=== PATIENT | male | born 1975 | race Caucasian/White ===

== ENCOUNTER 2020-02-18 20:28 | Emergency (ER) | payer SELFPAY | END 2020-02-18 21:35 | disposition left against medical advice (07) | LOC: MW.ED 20:28 | DX: Z53.21 Procedure and treatment not carried out due to patient leaving prior to being seen by health care provider (principal) ==

== ENCOUNTER 2020-07-20 16:01 | Emergency (ER) | payer SELFPAY ==
[2020-07-20] MEDS ORDERED: LORazepam 2 MG/ML SDV IVPUSH ONE (16:18)
[2020-07-20] MEDS ORDERED: Sodium Chloride 0.9% 2.5 ML Syringe FLUSH PRN (16:18)
[2020-07-20] MEDS ORDERED: Sodium Chloride 0.9% 10 ML Syringe FLUSH PRN (16:18)
[2020-07-20] MEDS ORDERED: Haloperidol Lactate 5 MG/ML SDV IM ONE ×2 (16:18→16:51)
[2020-07-20] MEDS ORDERED: Sodium Chloride 0.9% 1,000 ML IV ONE (16:18)
--- NOTE | 2020-07-20 16:25 | EDM.PDOC ---
ED HPI GENERAL MEDICAL PROBLEM - General Chief Complaint: Behavioral/Psych Stated Complaint: MEDICAL CLEARANCE Time Seen by Provider: 07/20/20 16:09 Source of Information: Reports: Patient History Limitations: Reports: No Limitations - History of Present Illness INITIAL COMMENTS - FREE TEXT/NARRATIVE: 44-year-old male past medical history alcohol and substance abuse presents for suicidal ideation. Patient is brought in under 96-hour court hold. Patient states that he became very intoxicated this morning and had thoughts of self- harm. He notes that his took away all of his guns because she is concerned that he would hurt himself. He told her that he bought some rat poison but tells me that this was a lie. He did admit to her that he did not actually take any rat poison. - Related Data Allergies Allergy/AdvReac Type Severity Reaction Status Date / Time No Known Allergies Allergy Verified 07/20/20 16:25 Home Meds: Home Meds . [No Known Home Meds] 02/18/20 [History] Past Medical History - Past Health History Medical/Surgical History: Denies Medical/Surgical History - Infectious Disease History Infectious Disease History: Reports: Novel Coronavirus Social & Family History - Family History Family Medical History: No Pertinent Family History - Caffeine Use Caffeine Use: Reports: Coffee ED ROS GENERAL - Review of Systems Review Of Systems: Comprehensive ROS is negative, except as noted in HPI. ED EXAM, GENERAL - Physical Exam Exam: See Below Exam Limited By: No Limitations General Appearance: Alert, WD/WN, Anxious Eye Exam: Bilateral Eye: EOMI, PERRL Throat/Mouth: Normal Voice, No Airway Compromise Head: Atraumatic, Normocephalic Neck: Normal Inspection, Supple Respiratory/Chest: No Respiratory Distress, Lungs Clear, Normal Breath Sounds, No Accessory Muscle Use Cardiovascular: Normal Peripheral Pulses, Tachycardia GI/Abdominal: Soft, Non-Tender Extremities: Normal Inspection Neurological: Alert, Normal Gait Psychiatric: Other (Cooperative, tearful, depressed mood, flat affect, endorses suicidal ideation, denies homicidal ideation) Skin Exam: Warm, Dry, Intact, Normal Color Course - Vital Signs Last Recorded V/S: Last Vital Signs Temp 98.1 F 07/20/20 16:01 Pulse 102 H 07/20/20 17:30 Resp 20 07/20/20 17:30 BP 147/78 H 07/20/20 17:30 Pulse Ox 94 L 06/10/21 17:30 - Orders/Labs/Meds Orders: Active Orders 24 hr Category Date Time Status EKG Documentation Completion [RC] STAT Care 07/20/20 16:18 Active CORONAVIRUS COVID-19 [facility] [[facility]] Stat Lab 07/20/20 17:09 Received INR,PT,PROTHROMBIN TIME [[facility]] Stat Lab 07/20/20 16:45 Received PTT,PARTIAL THROMBOPLSTIN TIME [COAG] Stat Lab 07/20/20 16:45 Received Labs: Laboratory Tests 07/20/20 07/20/20 07/20/20 Range/Units 16:45 16:45 17:00 WBC 4.63 (4.0-11.0) K/uL RBC 5.80 (4.50-5.90) M/uL Hgb 17.7 H (13.0-17.0) g/dL Hct 50.1 H (38.0-50.0) % MCV 86.4 (80.0-98.0) fL MCH 30.5 (27.0-32.0) pg MCHC 35.3 (31.0-37.0) g/dL RDW Std Deviation 41.0 (28.0-62.0) fl RDW Coeff of Shaista 13 (11.0-15.0) % Plt Count 234 (150-400) K/uL MPV 9.60 (7.40-12.00) fL Neut % (Auto) 52.8 (48.0-80.0) % Lymph % (Auto) 38.2 (16.0-40.0) % [place] % (Auto) 7.1 (0.0-15.0) % Eos % (Auto) 1.3 (0.0-7.0) % Baso % (Auto) 0.6 (0.0-1.5) % Neut # (Auto) 2.4 (1.4-5.7) K/uL Lymph # (Auto) 1.8 (0.6-2.4) K/uL [place] # (Auto) 0.3 (0.0-0.8) K/uL Eos # (Auto) 0.1 (0.0-0.7) K/uL Baso # (Auto) 0.0 (0.0-0.1) K/uL Nucleated RBC % 0.0 /100WBC Nucleated RBCs # 0 K/uL Sodium 145 (136-148) mmol/L Potassium 4.0 (3.5-5.1) mmol/L Chloride 104 (98-107) mmol/L Carbon Dioxide 19.1 L (21.0-32.0) mmol/L BUN 11 (7.0-18.0) mg/dL Creatinine 0.9 (0.8-1.3) mg/dL Est Cr Clr Drug Dosing 113.88 mL/min Estimated GFR (MDRD) > 60.0 ml/min Glucose 91 (74-106) mg/dL Calcium 8.6 (8.5-10.1) mg/dL Magnesium 1.9 (1.8-2.4) mg/dL Total Bilirubin 0.5 (0.2-1.0) mg/dL AST 38 H (15-37) IU/L ALT 48 (14-63) IU/L Alkaline Phosphatase 87 (46-116) U/L Total Protein 8.2 (6.4-8.2) g/dL Albumin 4.1 (3.4-5.0) g/dL Globulin 4.1 H (2.6-4.0) g/dL Albumin/Globulin Ratio 1.0 (0.9-1.6) TSH 3rd Generation 0.38 (0.36-3.74) uIU/mL Urine Color YELLOW Urine Appearance CLEAR Urine pH 5.5 (5.0-8.0) Ur Specific [place] 1.025 (1.001-1.035) Urine Protein TRACE H (NEGATIVE) mg/dL Urine Glucose (UA) NEGATIVE (NEGATIVE) mg/dL Urine Ketones 15 H (NEGATIVE) mg/dL Urine Occult Blood NEGATIVE (NEGATIVE) Urine Nitrite NEGATIVE (NEGATIVE) Urine Bilirubin NEGATIVE (NEGATIVE) Urine Urobilinogen 0.2 (<2.0) EU/dL Ur Leukocyte Esterase NEGATIVE (NEGATIVE) Urine RBC 0-2 (0-2/HPF) Urine WBC 0-2 (0-5/HPF) Ur Epithelial Cells RARE (NONE-FEW) Urine Bacteria RARE (NEGATIVE) Urine Opiates Screen (NEGATIVE) Ur Oxycodone Screen (NEGATIVE) Urine Methadone Screen (NEGATIVE) Ur Barbiturates Screen (NEGATIVE) Ur Phencyclidine Scrn (NEGATIVE) Ur Amphetamine Screen (NEGATIVE) U Methamphetamines Scrn (NEGATIVE) U Benzodiazepines Scrn (NEGATIVE) U Cocaine Metab Screen (NEGATIVE) U Marijuana (THC) Screen (NEGATIVE) Ethyl Alcohol 413 mg/dL 07/20/20 Range/Units 17:00 WBC (4.0-11.0) K/uL RBC (4.50-5.90) M/uL Hgb (13.0-17.0) g/dL Hct (38.0-50.0) % MCV (80.0-98.0) fL MCH (27.0-32.0) pg MCHC (31.0-37.0) g/dL RDW Std Deviation (28.0-62.0) fl RDW Coeff of [place]ista (11.0-15.0) % Plt Count (150-400) K/uL MPV (7.40-12.00) fL Neut % (Auto) (48.0-80.0) % Lymph % (Auto) (16.0-40.0) % [place] % (Auto) (0.0-15.0) % Eos % (Auto) (0.0-7.0) % Baso % (Auto) (0.0-1.5) % Neut # (Auto) (1.4-5.7) K/uL Lymph # (Auto) (0.6-2.4) K/uL [place] # (Auto) (0.0-0.8) K/uL Eos # (Auto) (0.0-0.7) K/uL Baso # (Auto) (0.0-0.1) K/uL Nucleated RBC % /100WBC Nucleated RBCs # K/uL Sodium (136-148) mmol/L Potassium (3.5-5.1) mmol/L Chloride (98-107) mmol/L Carbon Dioxide (21.0-32.0) mmol/L BUN (7.0-18.0) mg/dL Creatinine (0.8-1.3) mg/dL Est Cr Clr Drug Dosing mL/min Estimated GFR (MDRD) ml/min Glucose (74-106) mg/dL Calcium (8.5-10.1) mg/dL Magnesium (1.8-2.4) mg/dL Total Bilirubin (0.2-1.0) mg/dL AST (15-37) IU/L ALT (14-63) IU/L Alkaline Phosphatase (46-116) U/L Total Protein (6.4-8.2) g/dL Albumin (3.4-5.0) g/dL Globulin (2.6-4.0) g/dL Albumin/Globulin Ratio (0.9-1.6) TSH 3rd Generation (0.36-3.74) uIU/mL Urine Color Urine Appearance Urine pH (5.0-8.0) Ur Specific [place] (1.001-1.035) Urine Protein (NEGATIVE) mg/dL Urine Glucose (UA) (NEGATIVE) mg/dL Urine Ketones (NEGATIVE) mg/dL Urine Occult Blood (NEGATIVE) Urine Nitrite (NEGATIVE) Urine Bilirubin (NEGATIVE) Urine Urobilinogen (<2.0) EU/dL Ur Leukocyte Esterase (NEGATIVE) Urine RBC (0-2/HPF) Urine WBC (0-5/HPF) Ur Epithelial Cells (NONE-FEW) Urine Bacteria (NEGATIVE) Urine Opiates Screen NEGATIVE (NEGATIVE) Ur Oxycodone Screen NEGATIVE (NEGATIVE) Urine Methadone Screen NEGATIVE (NEGATIVE) Ur Barbiturates Screen NEGATIVE (NEGATIVE) Ur Phencyclidine Scrn NEGATIVE (NEGATIVE) Ur Amphetamine Screen NEGATIVE (NEGATIVE) U Methamphetamines Scrn NEGATIVE (NEGATIVE) U Benzodiazepines Scrn NEGATIVE (NEGATIVE) U Cocaine Metab Screen NEGATIVE (NEGATIVE) U Marijuana (THC) Screen NEGATIVE (NEGATIVE) Ethyl Alcohol mg/dL Meds: Medications Discontinued Medications Generic Name Dose Route Start Last Admin Trade Name Freq PRN Reason Stop Dose Admin Haloperidol Lactate 5 mg 07/20/20 16:18 07/20/20 16:56 Haloperidol Lactate 5 Mg/Ml Sdv IM 07/20/20 16:19 Not Given ONETIME ONE Haloperidol Lactate 5 mg 07/20/20 16:51 07/20/20 17:11 Haloperidol Lactate 5 Mg/Ml Sdv IM 07/20/20 16:52 5 mg ONETIME ONE Administration Sodium Chloride 1,000 mls @ 999 mls/hr 07/20/20 16:18 07/20/20 16:56 Normal Saline IV 07/20/20 17:18 Not Given .Bolus ONE Lorazepam 2 mg 07/20/20 16:18 07/20/20 16:56 Lorazepam 2 Mg/Ml Sdv IVPUSH 07/20/20 16:19 Not Given ONETIME ONE Lorazepam 2 mg 07/20/20 16:51 07/20/20 17:11 Lorazepam 2 Mg/Ml Sdv IM 07/20/20 16:52 2 mg ONETIME ONE Administration Sodium Chloride 10 ml 07/20/20 16:18 Sodium Chloride 0.9% 10 Ml Syringe FLUSH ASDIRECTED PRN Keep Vein Open Sodium Chloride 2.5 ml 07/20/20 16:18 Sodium Chloride 0.9% 2.5 Ml Syringe FLUSH ASDIRECTED PRN Keep Vein Open - Re-Assessments/Exams Free Text/Narrative Re-Assessment/Exam: 07/20/20 17:[address] Daniel however he would like patient held until EtOH <200. Will sign out to night team ED physician to f/u repeat EtOH level. Departure - Departure Time of Disposition: 17:56 Disposition: DC/Tfer to Psych Hosp/Unit [facility] Condition: Good Clinical Impression: Alcohol abuse, Depressive disorder - Discharge Information Referrals: PCP,None [Primary Care Provider] - Forms: ED Department Discharge Sepsis Event Note (ED) - Evaluation Sepsis Screening Result: No Definite Risk - Focused Exam Vital Signs: Vital Signs Temp Pulse Resp BP BP Pulse Ox 07/20/20 17:30 102 H 20 147/78 H 94 L 07/20/20 17:00 103 H 20 146/76 H 98 07/20/20 16:49 89 20 125/94 H 92 L 07/20/20 16:19 100 20 145/82 H 92 L 07/20/20 16:01 98.1 F 123 H 18 133/95 H 95 - My Orders Last 24 Hours: My Active Orders 07/20/20 16:18 EKG Documentation Completion [RC] STAT 07/20/20 16:45 INR,PT,PROTHROMBIN TIME [[facility]] Stat PTT,PARTIAL THROMBOPLSTIN TIME [CO[facility]] Stat 07/20/20 17:09 CORONAVIRUS COVID-19 [facility] [[facility]LE[facility]] Stat - Assessment/Plan Last 24 Hours: My Active Orders 07/20/20 16:18 EKG Documentation Completion [RC] STAT 07/20/20 16:45 INR,PT,PROTHROMBIN TIME [[facility]AG] Stat PTT,PARTIAL THROMBOPLSTIN TIME [COAG] Stat 07/20/20 17:09 CORONAVIRUS COVID-19 [facility] [MOLEC] Stat
[2020-07-20] MEDS ORDERED: LORazepam 2 MG/ML SDV IM ONE (16:51)
[2020-07-20 17:38] LABS: BLOOD UREA NITROGEN,BUN 11 mg/dL (7.0-18.0); CARBON DIOXIDE,CO2 19.1 mmol/L (21.0-32.0); CHLORIDE,CL 104 mmol/L (98-107); GLUCOSE RANDOM 91 mg/dL (74-106); SODIUM,NA 145 mmol/L (136-148)
[2020-07-20] MEDS ORDERED: Calcium Carbonate 500 MG Tab.Chew ONE (20:42)
[2020-07-20] MEDS ORDERED: Calcium Carbonate 500 MG Tab.Chew PO ONE (20:45)
[2020-07-20] MEDS ORDERED: chlordiazePOXIDE 25 MG Cap PO ONE (22:48)
== END 2020-07-20 22:57 ==
LOC: MW.ED 16:01
DX: F32.9 Major depressive disorder, single episode, unspecified (principal); F10.10 Alcohol abuse, uncomplicated; Y90.8 Blood alcohol level of 240 mg/100 ml or more
CPT/HCPCS: 36415; 80053; 80305; 80307; 81001; 83735; 84443; 85025; 85610; 85730; 87635; 93005; 96372; 99285; A9270; J1630; J2060; U0002